=== PATIENT | female | born 1970 | race African-American/Black ===

== ENCOUNTER 2017-04-17 17:59 | Emergency (ER) | payer OTHER ==
[~2017-04-17] VITALS: Ht 167.6 cm; Wt 62.6 kg
[~2017-04-17 17:59] MED LIST: CIPRO500 MG PO; IBUPROFEN600 MG ORAL; TRAMADOL HCL50 MG ORAL
--- NOTE | 2017-04-17 18:11 | Emergency Room Report ---
History of Present Illness General Chief Complaint: Back Pain-No Injury Source: Patient Present Illness HPI [id number] walk-in with acute on chronic right lower back pain after reaching up high in closet for a pillow. Sharp non-radiating pain to right lower back. Pain is "10/10" sharp, constant. History of chronic spinal stenosis and "always in pain" but this was acute exacerbation. Denies assoc lower extremity weakness , urinary/fecal incontinence, fever/chills, dysuria, history of IVDU or malignancy. States takes Tylenol for pain "but that never helps." Denies history of kidney stones. Allergies: Coded Allergies: No Known Allergies (Unverified , 01/01/15) Patient History Past Medical History: other - spinal stenosis Past Surgical History: none Pertinent Family History: none Social History: Denies: alcohol use, drug use, smoking Last Menstrual Period: na Now: No Immunizations: UTD Reviewed Nursing Documentation: PMH: Agreed, PSxH: Agreed Nursing Documentation-PMH Past Medical History: No History, Except For Hx Neurological Problems: Yes - spinal stenosis Review of Systems All Other Systems: negative except mentioned in HPI Physical Exam Vital Signs Date Time Temp Pulse Resp B/P Pulse Ox O2 Delivery O2 Flow Rate FiO2 04/17/17 18:02 97.5 78 18 120/86 98 Room Air Sp02 EP Interpretation: reviewed, normal General Appearance: normal inspection, well appearing, no apparent distress, alert, GCS 15, non-toxic Head: normocephalic, atraumatic Eyes: bilateral eye EOMI, bilateral eye PERRL ENT: normal ENT inspection, hearing grossly normal, normal voice Neck: normal inspection, full range of motion, supple, no bony tend Respiratory: normal inspection, lungs clear, normal breath sounds, no respiratory distress, no retraction, no wheezing Gastrointestinal: normal inspection, normal bowel sounds, non tender, soft, no guarding, no hernia Genitourinary: no CVA tenderness Musculoskeletal: normal inspection, back normal, normal range of motion, [place]' s Sign negative Neurologic: normal inspection, alert, oriented x3, responsive, 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 Right lower back pain - Likely multifactorial combination of acute cystitis and acute on chronic back pain with strain - Initial Macrobid given in ED - Analgesia also provided - Rx macrobid and T#3 with Robaxin for back pain - Advised to return to ER for worsening pain, nausea/vomiting, fever/chills, unable to tolerate PO PMD followup as needed - Low suspicion for cord compression given well appearance, right paravertebral ttp with exacerbating activity today, positive SL raise test on opposite side, no focal neuro deficits, absence of midline ttp/masses and pain worse with movement Last Vital Signs Date Time Temp Pulse Resp B/P Pulse Ox O2 Delivery O2 Flow Rate FiO2 04/17/17 18:02 97.5 78 18 120/86 98 Room Air Status: improved Disposition: HOME, SELF-CARE Scripts Methocarbamol* (ROBAXIN-750*) 750 Mg Tablet 750 MG PO TID for 7 Days, #30 TAB 0 Refills Prov: IVELISSE FORRESTER M.D. 04/17/17 Acetaminophen With Codeine (T#3) (TYLENOL #3 TAB*) Y Tab 1 TAB ORAL Q8H Y for For Pain, #20 TAB Prov: IVELISSE FORRESTER M.D. 04/17/17 Nitrofurantoin Monohyd/M-Cryst* (MACROBID 100 MG*) 100 Mg Capsule 100 MG ORAL EVERY 12 HOURS for 7 Days, #13 CAP Prov: IVELISSE FORRESTER M.D. 04/17/17 IVELISSE FORRESTER M.D. April 17, 2017 18:11
[2017-04-17 18:23] LABS: KETONES,URINE NEGATIVE (NEGATIVE); LEUKOCYTE ESTERASE ,URINE 1+ (NEGATIVE); NITRITE,URINE NEGATIVE (NEGATIVE); PH,URINE 5 (4.5-8.0); PROTEIN,URINE 2+ (NEGATIVE); UROBILINOGEN,URINE NORMAL MG/DL (0.0-1.0)
[2017-04-17 18:25] LABS: APPEARANCE,URINE SLIGHTLY CLOUDY
[2017-04-17 18:30] LABS: BACTERIA,URINE MODERATE /HPF; RBC,URINE TNTC /HPF (0 - 2); SQUAMOUS EPITHELIAL CELL,UR MANY /LPF (NONE/OCC)
[2017-04-17] MEDS ORDERED: ACETAMINOPHEN-1 EAC1 ORAL (18:42)
[2017-04-17] MEDS ORDERED: NITROFURANTOIN100 M2 ORAL (18:42)
[2017-04-17] MEDS ORDERED: ROBAXIN-750750 MG PO (18:42)
[2017-04-17] MEDS ORDERED: Ketorolac 60mg Inj IM ONE (18:45)
[2017-04-17 18:49] VITALS: BP 120/86
== END 2017-04-17 18:50 | disposition home or self-care (01) ==
LOC: EMR 18:38
DX: M54.5 Low back pain (principal); N39.0 Urinary tract infection, site not specified; M48.00 Spinal stenosis, site unspecified; R35.8 Other polyuria
CPT/HCPCS: 80300; 81003; 81025; 87086; 96372; 99284